=== PATIENT | male | born 1965 | race Caucasian/White ===

== ENCOUNTER → 2017-02-10 | Outpatient (CLI) | payer BC ==
--- NOTE | 2017-02-11 08:51 | PN ---
This is a 51-year-old male patient who is coming in for a compliancy check regarding his obstructive sleep apnea. 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 The patient is very much alert and awake during the day knowing that he has been extremely compliant with CPAP therapy. I have treated this patient with an auto CPAP unit with a pressure minimum of 10 and pressure maximum of 20. On today's compliancy data, I noted that there is some residual obstructive sleep apnea despite his compliance. His AHI is down to 7.4. Despite that, the patient is not having any major hypersomnia or sleepiness during the day. 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 No falling asleep behind the wheel and is fully alert and awake. I noted that he is averaging around 8 hours and 8 minutes on his CPAP unit and his P90 pressure is at 19.3. He has lost weight and he is down 332 pounds, which is approximately 9 pounds less. He is wearing his CPAP every night without any interruption. His treatment has been very much successful. He is still benefiting from the treatment. No other comorbidities for now. No other changes in his medications or health status in general. BP is 132/78, pulse 84, respirations 16, temperature 97.6, saturation 96% on room air. BMI is 43.8. Rumsey score is 1. Weight is 332, height is 73 inches. GENERAL APPEARANCE: Calm, comfortable. HEENT: Mallampati class IV. There is no goiter or neck masses. LUNGS: Clear to auscultation. HEART: Sounds are regular rate and rhythm. Normal S1, S2. No S3. No S4. No murmurs. ABDOMEN: Soft, nontender. No organomegaly. EXTREMITIES: No edema. No cyanosis or clubbing. IMPRESSION: 1. Obstructive sleep apnea. The patient continues to undergo a successful CPAP therapy. He clinically is fully alert and awake. Nevertheless, his compliance data shows some minimal residual obstructive events with an apnea-hypopnea index of 7.4 while on treatment. He is on auto CPAP unit with a minimum pressure of 10 and a maximum pressure of 20. 2. Obesity with ongoing weight loss. 3. Diabetes. 4. Hypertension. PLAN: The patient is very compliant and he continues to wear his CPAP every night without interruption. He has seen excellent clinical benefit and there is no hypersomnia or sleepiness. 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 I would like; however, to switch his CPAP pressure setting from an auto CPAP unit to a continuous CPAP unit with a pressure of 20 cm of water and this will eliminate the residual obstructive apnea that he is encountering. He is very compliant. Continue with the same treatment. Follow up with [facility] regarding DOT recertification.
== END | disposition home or self-care (01) ==
LOC: SLEEP 14:29
PROVIDERS: ATTEND Internal Medicine Critical Care Medicine
DX: G47.33 Obstructive sleep apnea (adult) (pediatric) (principal); E66.9 Obesity, unspecified; Z68.41 Body mass index [BMI] 40.0-44.9, adult; E11.9 Type 2 diabetes mellitus without complications; I10 Essential (primary) hypertension

== ENCOUNTER → 2018-08-10 | Outpatient (CLI) | payer BC ==
--- NOTE | 2018-08-10 17:58 | SFUN ---
SLEEP CENTER FOLLOW UP NOTE Lukas is 53 coming in for an annual check regarding obstructive sleep apnea. The patient is doing well and has no specific complaints on today's evaluation. 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 He is on a APAP with a minimum pressure of 10, maximum pressure of 20. Based on the compliance data, the patient has been averaging around 7.9 hours of CPAP use per night. Average PAP pressure is 17, leak factor is 4 L per minute, AHI while on treatment is down to 2.4. No complaints otherwise for now. He has been on CPAP therapy for many years. Weight has been stable. BP 156/87, pulse 78, respirations 16, temperature 97.9, saturation 96% on room air. Weight is 328, height is 6 feet 0 inches, and BMI of 44.4. General appearance: Calm, comfortable. Head is atraumatic, normocephalic. Neck is supple. Mallampati class IV. There is no goiter or neck masses. Lungs clear to auscultation. Heart sounds are regular rate and rhythm. Normal S1, S2. No S3, S4. No murmurs. Abdomen is soft, nontender. No organomegaly. EXTREMITIES: No edema. No cyanosis or clubbing. IMPRESSION: 1. Symptomatic obstructive sleep apnea. The patient currently is on APAP and treatment continues to be successful. Compliance data was checked and the patient continues to benefit from the treatment. 2. Obesity. 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 4. Diabetes mellitus. 5. Hypertension. 6. Hypersomnia, improved. PLAN: 1. Continue CPAP at same level of pressure. 2. Treatment is successful, the patient continues to benefit from treatment. 3. See me back in a year's time, earlier if needed. MMODL / IJN: [id number] /
== END | disposition home or self-care (01) ==
LOC: SLEEP 16:07
PROVIDERS: ATTEND Internal Medicine Critical Care Medicine
DX: G47.33 Obstructive sleep apnea (adult) (pediatric) (principal); E66.9 Obesity, unspecified; E11.9 Type 2 diabetes mellitus without complications; I10 Essential (primary) hypertension; Z68.41 Body mass index [BMI] 40.0-44.9, adult; Z99.89 Dependence on other enabling machines and devices

== ENCOUNTER → 2019-08-16 | Outpatient (CLI) | payer BC ==
--- NOTE | 2019-08-16 18:19 | PN ---
PROGRESS NOTE This is a 54-year-old male patient diagnosed having obstructive sleep apnea, coming in for an annual check. The patient is known to have obstructive sleep apnea and the patient has been on APAP mode with a minimum pressure of 5 and a maximum pressure of 20. On today's evaluation, the patient continues to be successful. Average pressure delivered from the CPAP machine is less and is down to 14. This is a reflection of his weight loss, as the patient has lost approximately 25 pounds since his last evaluation. His was diagnosed having breast cancer and this was quite stressful for him, and he has changed his diet pattern. He has lost weight from a baseline of 328 down to 303. Based on the compliance data, the patient has been averaging 7.8 hours of CPAP use per night. His CPAP use for more than 4 hours is 100%. AHI is down to 2.5. Leak is 30 L/minute. He has no complaints. 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 No sleepiness, tiredness or fatigue during the day. No other complaints otherwise for now. REVIEW OF SYSTEMS: Fourteen-point review of systems was done. Positive findings were all mentioned above in the history of present illness. No cardiac disease. No arrhythmias. No angina. No palpitations. No chest pain. No shortness of breath. No swelling in the lower extremities. PHYSICAL EXAMINATION: VITAL SIGNS: BP is 130/70, pulse 82, respirations 16, temperature 97.6, saturation 98% on room air. Height is 6 feet 1 inch, weight 303, BMI 39.8. GENERAL APPEARANCE: Calm, comfortable. HEAD: Atraumatic, normocephalic. NECK: Supple. There is no JVD. No goiter or neck masses. LUNGS: Clear to auscultation. HEART: Heart sounds are regular rate and rhythm. Normal S1, S2. No S3, S4. No murmurs. ABDOMEN: Soft, nontender. No organomegaly. EXTREMITIES: No edema. No cyanosis or clubbing. NEUROLOGIC: Awake and alert. There are no focal neurological deficits. PSYCHIATRIC: Negative for anxiety or depression. SKIN: Negative for any wounds or ulceration. IMPRESSION: 1. Symptomatic obstructive sleep apnea. Currently on APAP, minimum of 10, maximum of 20. The patient is demonstrating excellent clinical response and compliance and he continues to benefit from treatment. He has no new issues for now. 2. Obesity with an interval 25-pound weight loss. 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 4. Diabetes mellitus. 5. Hypertension. 6. Hypersomnia, improved. PLAN: 1. Continue APAP at the same mode. 2. Renew supplies. 3. Encourage further weight loss. 4. Monitor the outcome. The patient will see me back in a year's time in followup. MMODL / IJN: [id number] /
== END | disposition home or self-care (01) ==
LOC: SLEEP 15:44
PROVIDERS: ATTEND Internal Medicine Critical Care Medicine
DX: G47.33 Obstructive sleep apnea (adult) (pediatric) (principal); E66.9 Obesity, unspecified; E11.9 Type 2 diabetes mellitus without complications; I10 Essential (primary) hypertension; R63.4 Abnormal weight loss; Z68.39 Body mass index [BMI] 39.0-39.9, adult

== ENCOUNTER → 2020-08-07 | Outpatient (CLI) | payer BC ==
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
== END | disposition home or self-care (01) ==
LOC: SLEEP 15:45
PROVIDERS: ATTEND Internal Medicine Critical Care Medicine
DX: G47.33 Obstructive sleep apnea (adult) (pediatric) (principal); G47.10 Hypersomnia, unspecified; E66.9 Obesity, unspecified; Z68.39 Body mass index [BMI] 39.0-39.9, adult; E11.9 Type 2 diabetes mellitus without complications; I10 Essential (primary) hypertension

== ENCOUNTER → 2021-09-24 | Outpatient (CLI) | payer BC ==
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
== END ==
LOC: SLEEP 15:40
PROVIDERS: ATTEND Internal Medicine Critical Care Medicine
DX: G47.33 Obstructive sleep apnea (adult) (pediatric) (principal); E66.9 Obesity, unspecified; E11.9 Type 2 diabetes mellitus without complications; I10 Essential (primary) hypertension; Z68.42 Body mass index [BMI] 45.0-49.9, adult

== ENCOUNTER → 2022-09-23 | Outpatient (CLI) | payer BC ==
--- NOTE | 2022-09-23 16:11 | P.PN ---
Progress Note - Text Progress Note Date: 09/23/22 This is a 57-year-old male patient was being seen for an annual checkup regarding obstructive sleep apnea. Since his last visit, the patient was able to get a new CPAP unit which is an APAP unit, Resvent device, and this is adjusted at a minimum pressure of 10 and a maximum pressure of 20. 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 He is fully alert and awake during the day. He does not fall asleep while driving. No heartburn. No chest pain. No shortness of breath. No morning headaches. No daytime hypersomnia or sleepiness. I checked his new CPAP unit. I noted that the patient has been using his machine overnight. The patient has used his machine more than 4 hours 97% of the time. He is average usage between 08/17/2022 and 09/07/2022 has been in the order of 8.2 hours per night. His PT 95th percentile pressure is at 13.9 cm of water. The 95 percentile leak is around 17 L/m and his AHI is down to 1.6. He has no complaints. He continues to use a fullface mask, large size Shantell view. No issues with hypertension. No stroke. No congestion heart fail ure. His machine is functional. His current vitals BP is 123/80 with a pulse of 77 and a respiration of 16 and a temperature of 97.7. Pulse ox is 97% on room air oxygen. Gramercy score is down to 2. The patient appeared well nourished and normally developed. Vital signs as documented. Head exam is unremarkable. No scleral icterus or corneal arcus noted. Neck is without jugular venous distension, thyromegaly, or carotid bruits. Carotid upstrokes are brisk bilaterally. Lungs are clear to auscultation and percussion. Cardiac exam reveals the PMI to be normally sized and situated. Rhythm is regular. First and second heart sounds normal. No murmurs, rubs or gallops. Abdominal exam reveals normal bowel sounds, no masses, no organomegaly and no aortic enlargement. Extremities are nonedematous and both femoral and pedal pulses are normal.Examination of the skin revealed no evidence of significant rashes, suspicious appearing nevi or other concerning lesions.Neurologically, the patient is awake and alert and the patient does not have any focal neurological deficit. Cranial nerves are essentially intact. 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
== END ==
LOC: SLEEP 15:46
PROVIDERS: ATTEND Internal Medicine Critical Care Medicine
DX: Z53.9 Procedure and treatment not carried out, unspecified reason (principal)

== ENCOUNTER → 2023-09-29 | Outpatient (CLI) | payer BC ==
--- NOTE | 2023-09-29 17:06 | P.PN ---
Progress Note - Text Progress Note Date: 09/29/23 On 09/29/2023, seeing the patient for an annual checkup regarding his obstructive sleep apnea. The patient has known history of obstructive sleep apnea and the patient has been treated with APAP therapy over the years. The patient is doing extremely well and he is currently still maintain on a APAP mode with a minimum pressure of 10 and a maximum pressure of 20. He is using a lennox view fullface mask. No specific complaints. No tiredness or sleepiness during the day. 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 His sleep quality is good. Refreshed in the morning and does not take any naps. CPAP compliancy has been excellent and the patient's data on his machine epi cates that the patient utilizes machine more than 4 hours 98% of the time and his AHI is down to 2.4 while on treatment and is averaging about 8.6 hours of CPAP use per night. No complaints whatsoever. No cardiac vascular complications. BP is 127/92, pulse is 96, respirations 16, temperature is 98.0, pulse ox is 95% on room air. The patient has an Dixon score of 1. The patient appeared well nourished and normally developed. Vital signs as documented. Head exam is unremarkable. No scleral icterus or corneal arcus noted. Neck is without jugular venous distension, thyromegaly, or carotid bruits. Carotid upstrokes are brisk bilaterally. Lungs are clear to auscultation and percussion. Cardiac exam reveals the PMI to be normally sized and situated. Rhythm is regular. First and second heart sounds normal. No murmurs, rubs or gallops. Abdominal exam reveals normal bowel sounds, no masses, no organomegaly and no aortic enlargement. Extremities are nonedematous and both femoral and pedal pulses are normal.Examination of the skin revealed no evidence of significant rashes, suspicious appearing nevi or other concerning lesions.Neurologically, the patient is awake and alert and the patient does not have any focal neurological deficit. Cranial nerves are essentially intact. Assessment Symptomatic obstructive sleep apnea, effectively treated with a APAP mode pres sures of 10/20 cm of water. 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 daytime tiredness or sleepiness and his sleep apnea is essentially well treated. Diabetes mellitus type 2 Hypertension Obesity with a stable body weight Plan Continue CPAP therapy the same level of pressure. The patient wanted to try a different mask. I gave him the air fit F 30 I fullface mask to try and a prescription was sent to his DME. Encourage weight loss. Keep same pressure setting. See me back in one year.
== END ==
LOC: 3 N SLEEP 15:10
PROVIDERS: ATTEND Internal Medicine Critical Care Medicine
DX: G47.33 Obstructive sleep apnea (adult) (pediatric) (principal); E11.9 Type 2 diabetes mellitus without complications; I10 Essential (primary) hypertension; E66.9 Obesity, unspecified; Z99.89 Dependence on other enabling machines and devices
CPT/HCPCS: 99212

== ENCOUNTER → 2023-11-05 | Outpatient (CLI) | payer BC | END | disposition home or self-care (01) | LOC: LABWHC1 13:21 | PROVIDERS: ATTEND Family Medicine | DX: I45.4 Nonspecific intraventricular block (principal); R00.0 Tachycardia, unspecified; R94.31 Abnormal electrocardiogram [ECG] [EKG] | CPT/HCPCS: 36415; 93005 ==

== ENCOUNTER 2023-11-06 10:42 | Inpatient (IN) | payer BC ==
--- NOTE | 2023-11-06 10:51 | ED ---
Arrhythmia/Palpitations HPI - General Chief Complaint: Arrhythmia/Palpitations Stated Complaint: Abn EKG Time Seen by Provider: 11/06/23 10:48 Source: patient, RN notes reviewed Mode of arrival: ambulatory Limitations: no limitations - History of Present Illness Initial Comments: This is a 58-year-old male who presents to the emergency department for pal pitations. States that he has been experiencing fluttering in his chest and palpitations over the last several days. His primary care provider previously advised he check his blood pressure more closely at home, and while his blood pressure was doing well, he noticed on the monitor that his pulse was extremely elevated. He has also noted that he has been very short of breath and becoming winded when walking from a building to his car in the parking lot. Not currently taking any blood thinners. Denies any history of cardiac problems or abnormal rhythms. Denies any chest pain associated with this. MD Complaint: rapid heart beat, palpitations - Related Data Home Medications Medication Instructions Recorded Confirmed Atorvastatin [Lipitor] 80 mg PO HS 11/06/23 11/06/23 Glucosamine/Chondr Vazquez A Sod [Osteo 1 tab PO DAILY 11/06/23 11/06/23 Bi-Flex Caplet] Lisinopril-Hctz 20-25 mg 1 tab PO DAILY 11/06/23 11/06/23 [Zestoretic 20-25] Loratadine [Claritin] 10 mg PO DAILY 11/06/23 11/06/23 Semaglutide [Rybelsus] 7 mg PO DAILY 11/06/23 11/06/23 Vitamin C(Unknown Dose) 1 tab PO DAILY 11/06/23 11/06/23 Vitamin D3(Unknown Dose) 1 tab PO DAILY 11/06/23 11/06/23 metFORMIN HCL [Glucophage] 1,000 mg PO BID 11/06/23 11/06/23 Allergies Allergy/AdvReac Type Severity Reaction Status Date / Time cephalexin [From Keflex] AdvReac Nausea & Verified 11/06/23 12:24 Vomiting & Diarrhea Review of Systems ROS Statement: Those systems with pertinent positive or pertinent negative responses have been documented in the HPI. ROS Other: All systems not noted in ROS Statement are negative. Past Medical History Past Medical History: Atrial Fibrillation, Diabetes Mellitus, Hypertension History of Any Multi-Drug Resistant Organisms: None Reported Past Surgical History: Joint Replacement, Orthopedic Surgery Past Psychological History: No Psychological Hx Reported Smoking Status: Never smoker Past Alcohol Use History: None Reported Past Drug Use History: None Reported General Exam Limitations: no limitations General appearance: alert, in no apparent distress Head exam: Present: atraumatic, normocephalic, normal inspection Respiratory exam: Present: normal lung sounds bilaterally. Absent: respiratory distress, wheezes, rales, rhonchi, stridor Cardiovascular Exam: Present: tachycardia, irregular rhythm Neurological exam: Present: alert, oriented X3, CN II-XII intact Psychiatric exam: Present: normal affect, normal mood Skin exam: Present: warm, dry, intact, normal color. Absent: rash Course Vital Signs 11/06/23 11/06/23 11/06/23 10:44 10:46 14:29 Temperature 98.2 F Pulse Rate 133 H 121 H 99 Respiratory 20 16 Rate Blood Pressure 132/104 108/67 O2 Sat by Pulse 97 97 Oximetry 11/06/23 16:55 Temperature Pulse Rate 120 H Respiratory 16 Rate Blood Pressure 118/68 O2 Sat by Pulse Oximetry Medical Decision Making - Medical Decision Making This is a 58-year-old male who presents to the emergency department for palpitations. Was pt. sent in by a medical professional or institution? @ -No Did you speak to anyone other than the patient for history? @ -No Did you review nursing and triage notes? @ -Yes, and I agree, it is accurate with regards to the patient's symptoms. Were old charts reviewed? @ -No Differential Diagnosis? @ -Differential Palpitations: Ventricular arrhythmias, atrial arrhythmias, myocardial infarction, anemia, thyrotoxicosis, electrolyte imbalance, hypokalemia, pulmonary embolism, pulmonary disease, drugs, alcohol, anxiety, stress.... This is not meant to be an all-inclusive list. EKG interpreted by me (3pts min.)? @ -EKG interpreted by me demonstrating the following: Atrial flutter with rapid ventricular response. Ventricular rate 131 beats per minute, QRS duration 104 ms, QTC 222 ms. X-rays interpreted by me (1pt min.)? @ -Chest x-ray obtained, my interpretation identifies no localized consolidations or infiltrates. CT interpreted by me (1pt min.)? @ -Not obtained U/S interpreted by me (1pt. min.)? @ -Not obtained What testing was considered but not performed? (CT, X-rays, U/S, labs)? Why? @ -None What meds were considered but not given? Why? @ -None Did you discuss the management of the patient with other professionals? @ -Yes, Dr. Lamb, who accepts the patient for admission. Did you reconcile home meds? @ -Yes Was smoking cessation discussed for >3mins.? @ -No Was critical care preformed (if so, how long)? @ -Yes, >31 minutes. Were there social determinants of health that impacted care today? How? (Homelessness, low income, unemployed, alcoholism, drug addiction, transportation, low edu. Level, literacy, decrease access to med. care, [facility], rehab)? @ -No Was there de-escalation of care discussed even if they declined? (Discuss DNR or withdrawal of care, Hospice)? @ -No What co-morbidities impacted this encounter? (DM, HTN, Smoking, COPD, CAD, Cancer, CVA, Hep., AIDS, mental health diagnosis, sleep apnea, morbid obesity)? @ -DM, HTN Was patient admitted / discharged? @ -Admitted. Lab work obtained revealing a mild elevation in liver enzymes and a slightly low magnesium of 1.3. D-dimer and troponin negative. Chest x-ray reveals no acute process. Patient was noted to be in A. fib with RVR on arrival. Patient was started on cardizem and heparin drips. Magnesium replaced with 400mg Magnesium Oxide and 2g of Magnesium Sulfate. His heart rate was not well controlled with the Cardizem drip alone, and he was also given 15mg IVP of Cardizem and 5mg IVP of Metoprolol. Patient admitted to medicine for new onset atrial fibrillation. Consult placed for cardiology. Undiagnosed new problem with uncertain prognosis? @ -None Drug Therapy requiring intensive monitoring for toxicity (Heparin, Nitro, Insulin, Cardizem)? @ -Cardizem and Heparin Were any procedures done? @ -None Diagnosis/symptom? @ -New onset a-fib, hypomagnesemia Acute, or Chronic, or Acute on Chronic? @ -Acute Uncomplicated (without systemic symptoms) or Complicated (systemic symptoms)? @ -Complicated Side effects of treatment? @ -None Exacerbation, Progression, or Severe Exacerbation] @ -Not applicable Poses a threat to life or bodily function? @ -Yes This case was discussed in detail with the attending ED physician, Dr. Yost. Presentation, findings, and treatment plan discussed in detail as well. - Lab Data Result diagrams: 11/06/23 12:00 11/06/23 13:11 Lab Results 11/06/23 11/06/23 11/06/23 Range/Units 12:00 12:00 12:00 WBC 8.4 (3.8-10.6) k/uL RBC 4.93 (4.30-5.90) m/uL Hgb 14.7 (13.0-17.5) gm/dL Hct 43.5 (39.0-53.0) % MCV 88.2 (80.0-100.0) fL MCH 29.9 (25.0-35.0) pg MCHC 33.9 (31.0-37.0) g/dL RDW 13.3 (11.5-15.5) % Plt Count 224 (150-450) k/uL MPV 8.8 Neutrophils % 62 % Lymphocytes % 27 % Monocytes % 6 % Eosinophils % 2 % Basophils % 1 % Neutrophils # 5.2 (1.3-7.7) k/uL Lymphocytes # 2.2 (1.0-4.8) k/uL Monocytes # 0.5 (0-1.0) k/uL Eosinophils # 0.2 (0-0.7) k/uL Basophils # 0.1 (0-0.2) k/uL PT 10.2 (10.0-12.5) sec INR 0.9 (<1.2) APTT 24.0 (22.0-30.0) sec D-Dimer 0.28 (<0.60) mg/L FEU Sodium (137-145) mmol/L Potassium (3.5-5.1) mmol/L Chloride (98-107) mmol/L Carbon Dioxide (22-30) mmol/L Anion Gap mmol/L BUN (9-20) mg/dL Creatinine (0.66-1.25) mg/dL Est GFR (CKD-EPI)AfAm (>60 ml/min/1.73 sqM) Est GFR (CKD-EPI)NonAf (>60 ml/min/1.73 sqM) Glucose (74-99) mg/dL Calcium (8.4-10.2) mg/dL Magnesium (1.6-2.3) mg/dL Total Bilirubin (0.2-1.3) mg/dL AST (17-59) U/L ALT (4-49) U/L Alkaline Phosphatase (38-126) U/L Troponin I 0.013 (0.000-0.034) ng/mL Total Protein (6.3-8.2) g/dL Albumin (3.5-5.0) g/dL TSH (0.465-4.680) mIU/L 11/06/23 Range/Units 13:11 WBC (3.8-10.6) k/uL RBC (4.30-5.90) m/uL Hgb (13.0-17.5) gm/dL Hct (39.0-53.0) % MCV (80.0-100.0) fL MCH (25.0-35.0) pg MCHC (31.0-37.0) g/dL RDW (11.5-15.5) % Plt Count (150-450) k/uL MPV Neutrophils % % Lymphocytes % % Monocytes % % Eosinophils % % Basophils % % Neutrophils # (1.3-7.7) k/uL Lymphocytes # (1.0-4.8) k/uL Monocytes # (0-1.0) k/uL Eosinophils # (0-0.7) k/uL Basophils # (0-0.2) k/uL PT (10.0-12.5) sec INR (<1.2) APTT (22.0-30.0) sec D-Dimer (<0.60) mg/L FEU Sodium 137 (137-145) mmol/L Potassium 4.3 (3.5-5.1) mmol/L Chloride 105 (98-107) mmol/L Carbon Dioxide 25 (22-30) mmol/L Anion Gap 7 mmol/L BUN 23 H (9-20) mg/dL Creatinine 0.98 (0.66-1.25) mg/dL Est GFR (CKD-EPI)AfAm >90 (>60 ml/min/1.73 sqM) Est GFR (CKD-EPI)NonAf 84 (>60 ml/min/1.73 sqM) Glucose 119 H (74-99) mg/dL Calcium 9.3 (8.4-10.2) mg/dL Magnesium 1.3 L (1.6-2.3) mg/dL Total Bilirubin 0.4 (0.2-1.3) mg/dL AST 40 (17-59) U/L ALT 55 H (4-49) U/L Alkaline Phosphatase 154 H (38-126) U/L Troponin I (0.000-0.034) ng/mL Total Protein 6.7 (6.3-8.2) g/dL Albumin 4.1 (3.5-5.0) g/dL TSH 1.050 (0.465-4.680) mIU/L - Radiology Data Radiology results: report reviewed, image reviewed Disposition Clinical Impression: New onset atrial fibrillation, Hypomagnesemia Disposition: ADMITTED IP TO THIS [facility] Time of Disposition: 14:47
[2023-11-06] MEDS ORDERED: DILTIAZEM DRIP BOLUS FROM BAG 1 MG SOLN IV ONE ×2 (11:23→13:54)
[2023-11-06] MEDS: DILTIAZEM 125 MG in SODIUM CHLORIDE 0.9% 100 ML IV SCH (11:55)
[2023-11-06 12:10] LABS: Basophils # (A) 0.1 k/uL (0-0.2); Basophils % (A) 1 %; Eosinophils # (A) 0.2 k/uL (0-0.7); Eosinophils % (A) 2 %; HCT 43.5 % (39.0-53.0); HGB 14.7 gm/dL (13.0-17.5); Lymphocytes # (A) 2.2 k/uL (1.0-4.8); Lymphocytes % (A) 27 %; MCH 29.9 pg (25.0-35.0); MCHC 33.9 g/dL (31.0-37.0); MCV 88.2 fL (80.0-100.0); Mean Platelet Volume 8.8; Monocytes # (A) 0.5 k/uL (0-1.0); Monocytes % (A) 6 %; Neutrophils # (A) 5.2 k/uL (1.3-7.7); Neutrophils % (A) 62 %; Platelet Count 224 k/uL (150-450); RBC 4.93 m/uL (4.30-5.90); RDW 13.3 % (11.5-15.5); WBC 8.4 k/uL (3.8-10.6)
[2023-11-06 12:24] LABS: INR 0.9 (<1.2); Prothrombin Time 10.2 sec (10.0-12.5)
--- NOTE | 2023-11-06 12:33 | XR ---
EXAMINATION TYPE: XR chest 2V DATE OF EXAM: 11/06/2023 COMPARISON: NONE HISTORY: Dysrhythmia TECHNIQUE: Frontal and lateral views of the chest are obtained. FINDINGS: There is no focal air space opacity, pleural effusion, or pneumothorax seen. The cardiac silhouette size is within normal limits. The osseous structures are intact. Overlying EKG leads are present. IMPRESSION: No acute cardiopulmonary process.
[2023-11-06 13:26] LABS: ALT 55 U/L (4-49); AST 40 U/L (17-59); African American GFR (CKD) >90 (>60 ml/min/1.73 sqM); Albumin 4.1 g/dL (3.5-5.0); Alkaline Phosphatase 154 U/L (38-126); Anion Gap 7 mmol/L; Blood Urea Nitrogen 23 mg/dL (9-20); Calcium 9.3 mg/dL (8.4-10.2); Carbon Dioxide 25 mmol/L (22-30); Chloride 105 mmol/L (98-107); Glucose 119 mg/dL (74-99); Magnesium 1.3 mg/dL (1.6-2.3); Non-African American GFR(CKD) 84 (>60 ml/min/1.73 sqM); Potassium 4.3 mmol/L (3.5-5.1); Sodium 137 mmol/L (137-145); Total Bilirubin 0.4 mg/dL (0.2-1.3); Total Protein 6.7 g/dL (6.3-8.2)
[2023-11-06] MEDS ORDERED: MAGNESIUM OXIDE 400 MG TAB PO STA (14:38)
[2023-11-06] MEDS ORDERED: HEPARIN SODIUM 1,000 UN/ML (10ML VL) IV ONE (14:39)
[2023-11-06] MEDS ORDERED: HEPARIN SODIUM 1,000 UN/ML (10ML VL) IV PRN (14:39)
[2023-11-06] MEDS ORDERED: METOPROLOL TARTRATE 5 MG/5 ML VIAL IVP STA (14:46)
[2023-11-06] MEDS ORDERED: DILTIAZEM 5 MG/ML 5 ML VIAL IVP STA (14:46)
[2023-11-06] MEDS ORDERED: HYDROcodone/APAP 5-325MG 1 EACH TAB PO PRN (15:06)
[2023-11-06] MEDS ORDERED: NALOXONE 0.4 MG/ML 1 ML VIAL IV PRN (15:06)
[2023-11-06] MEDS ORDERED: MORPHINE SULFATE 4 MG/ML SYRINGE IV PRN (15:06)
[2023-11-06] MEDS ORDERED: ONDANSETRON 4 MG/2 ML VIAL IVP PRN (15:06)
[2023-11-06] MEDS ORDERED: ACETAMINOPHEN TAB 325 MG TAB PO PRN (15:06)
[2023-11-06] MEDS: HEPARIN SOD,PORK IN 0.45% NACL 25,000 UNIT in 0.45% NACL 1 250ML.BAG IV SCH (17:16)
[2023-11-06] MEDS: MAGNESIUM SULFATE-D5W PMX 1 GM in DEXTROSE/WATER 1 100ML.BAG IVPB SCH ×2 (17:25→21:10)
[2023-11-06 20:03] LABS: Glucose,Whole Blood 152 mg/dL (70-110)
[2023-11-06] MEDS: ATORVASTATIN 80 MG TAB PO SCH (21:07)
[2023-11-06] MEDS: metFORMIN 500 MG TAB PO SCH (21:08)
[2023-11-07] MEDS: DILTIAZEM 125 MG in SODIUM CHLORIDE 0.9% 100 ML IV SCH (04:37)
[2023-11-07 06:26] LABS: Glucose,Whole Blood 120 mg/dL (70-110)
[2023-11-07] MEDS: metFORMIN 500 MG TAB PO SCH ×2 (08:04→19:55)
[2023-11-07] MEDS: LORATADINE 10 MG TAB PO SCH (08:04)
[2023-11-07] MEDS: ASCORBIC ACID 500 MG TAB PO SCH (08:04)
[2023-11-07] MEDS: CHOLECALCIFEROL 25 MCG (1000 IU) TABLET PO SCH (08:04)
[2023-11-07] MEDS: NON FORMULARY DRUG (Semaglutide [Rybelsus] 7 MG Tablet) PO SCH (08:07)
[2023-11-07] MEDS ORDERED: NON FORMULARY DRUG (Glucosamine/Chondr Su A Sod [Osteo Bi-Flex Caplet] 1 EACH Tablet) PO SCH (09:00)
[2023-11-07] MEDS ORDERED: LISINOPRIL-HCTZ 20-25 MG 1 EACH TAB PO SCH (09:00)
[2023-11-07 09:28] LABS: Basophils # (A) 0.1 k/uL (0-0.2); Basophils % (A) 1 %; Eosinophils # (A) 0.1 k/uL (0-0.7); Eosinophils % (A) 2 %; HCT 45.7 % (39.0-53.0); HGB 14.7 gm/dL (13.0-17.5); Hypochromasia Moderate; Lymphocytes # (A) 1.8 k/uL (1.0-4.8); Lymphocytes % (A) 31 %; MCH 30.4 pg (25.0-35.0); MCHC 32.1 g/dL (31.0-37.0); Mean Platelet Volume 9.5; Monocytes # (A) 0.3 k/uL (0-1.0); Monocytes % (A) 5 %; Neutrophils # (A) 3.4 k/uL (1.3-7.7); Neutrophils % (A) 59 %; Platelet Count 175 k/uL (150-450); RBC 4.82 m/uL (4.30-5.90); RDW 13.2 % (11.5-15.5); WBC 5.8 k/uL (3.8-10.6)
[2023-11-07 09:32] LABS: MCV 94.9 fL (80.0-100.0)
[2023-11-07 09:50] LABS: ALT 57 U/L (4-49); African American GFR (CKD) >90 (>60 ml/min/1.73 sqM); Albumin 3.9 g/dL (3.5-5.0); Anion Gap 11 mmol/L; Blood Urea Nitrogen 20 mg/dL (9-20); Carbon Dioxide 18 mmol/L (22-30); Chloride 104 mmol/L (98-107); Glucose 200 mg/dL (74-99); Non-African American GFR(CKD) >90 (>60 ml/min/1.73 sqM); Sodium 133 mmol/L (137-145); Total Protein 6.8 g/dL (6.3-8.2)
[2023-11-07 09:57] LABS: AST 56 U/L (17-59); Potassium 5.1 mmol/L (3.5-5.1)
[2023-11-07 09:58] LABS: Alkaline Phosphatase 97 U/L (38-126)
--- NOTE | 2023-11-07 10:13 | P.HPIM ---
History of Present Illness H&P Date: 11/07/23 This is a 58-year-old male patient of Dr. Vega who presented with concerns of elevated heart rate and palpitations. Patient was monitoring blood pressure at home when he noticed on his blood pressure machine that his heart rate was elevated at 130s and has a feeling of his heart pounding. Upon arrival EKG was completed showing atrial flutter with RVR with heart rate of 131. Patient denies history of atrial flutter/fib. Chest x-ray completed showing no acute cardiopulmonary process. Additional medical history includes diabetes mellitus medication controlled, hyperlipidemia, hypertension. Patient denies any recent illness. D-dimer -0.28. TSH level I.050. This time patient will be admitted patient was started on Cardizem and heparin drip. Cardiology services consulted will order 2-D echo and repeat labs. At this time patient denies chest pain or shortness breath. Patient denies nausea vomiting or diarrhea. Patient denies any urinary burning or frequency Review of Systems Please refer to HPI otherwise unremarkable Past Medical History Past Medical History: Diabetes Mellitus, Hyperlipidemia, Hypertension History of Any Multi-Drug Resistant Organisms: None Reported Past Surgical History: Joint Replacement, Orthopedic Surgery Past Psychological History: No Psychological Hx Reported Smoking Status: Former smoker Past Alcohol Use History: None Reported Past Drug Use History: None Reported Medications and Allergies Home Medications Medication Instructions Recorded Confirmed Type Atorvastatin [Lipitor] 80 mg PO HS 11/06/23 11/06/23 History Glucosamine/Chondr Vazquez A Sod [Osteo 1 tab PO DAILY 11/06/23 11/06/23 History Bi-Flex Caplet] Lisinopril-Hctz 20-25 mg 1 tab PO DAILY 11/06/23 11/06/23 History [Zestoretic 20-25] Loratadine [Claritin] 10 mg PO DAILY 11/06/23 11/06/23 History Semaglutide [Rybelsus] 7 mg PO DAILY 11/06/23 11/06/23 History Vitamin C(Unknown Dose) 1 tab PO DAILY 11/06/23 11/06/23 History Vitamin D3(Unknown Dose) 1 tab PO DAILY 11/06/23 11/06/23 History metFORMIN HCL [Glucophage] 1,000 mg PO BID 11/06/23 11/06/23 History Allergies Allergy/AdvReac Type Severity Reaction Status Date / Time cephalexin [From Keflex] AdvReac Nausea & Verified 11/06/23 12:24 Vomiting & Diarrhea Physical Exam Vitals: Vital Signs Temp Pulse Pulse Resp BP BP Pulse Ox 11/07/23 08:00 97.9 F 90 17 119/72 93 L 11/07/23 04:00 97.9 F 95 17 109/75 96 11/07/23 02:00 94 18 11/07/23 00:00 97.7 F 94 18 117/76 96 11/06/23 21:17 97.9 F 93 17 128/78 95 11/06/23 20:00 93 11/06/23 16:55 120 H 16 118/68 11/06/23 14:29 99 16 108/67 97 11/06/23 10:46 121 H 11/06/23 10:44 98.2 F 133 H 20 132/104 97 Intake and Output 11/06/23 11/07/23 11/07/23 22:59 06:59 14:59 Intake Total 585.833 185.802 Balance 585.833 185.802 Intake: Intake, IV Titration 45.833 185.802 Amount Diltiazem 125 mg In 83.5 Sodium Chloride 0.9% 100 ml @ 5 MG/HR 5 mls/hr IV .Q24H VIRA Rx#:[id number] Heparin Sod,Pork in 0.45% 45.833 102.302 NaCl 25,000 unit In 0.45 % NaCl 1 250ml.bag @ 7. 473 UNITS/KG/HR 10 mls/hr IV .Q24H VIRA Rx#: [id number] Oral 540 Other: Voiding Method Toilet Toilet Toilet # Voids 2 Weight 133.81 kg Head normocephalic Neck supple Lungs irregular heart rate Heart regular rate and rhythm S1-S2, no rub or gallop Abdomen is soft nontender nondistended positive bowel sounds no hepatosplenomegaly Extremities no edema Neuro alert and orientated to 3 Results CBC & Chem 7: 11/07/23 09:17 11/07/23 09:17 Labs: Abnormal Lab Results - Last 24 Hours (Table) 11/06/23 11/06/23 11/06/23 Range/Units 13:11 20:01 20:21 APTT 32.8 H (22.0-30.0) sec Sodium (137-145) mmol/L Carbon Dioxide (22-30) mmol/L BUN 23 H (9-20) mg/dL Glucose 119 H (74-99) mg/dL POC Glucose (mg/dL) 152 H (70-110) mg/dL Magnesium 1.3 L (1.6-2.3) mg/dL ALT 55 H (4-49) U/L Alkaline Phosphatase 154 H (38-126) U/L 11/07/23 11/07/23 11/07/23 Range/Units 04:30 06:24 09:17 APTT 66.3 H (22.0-30.0) sec Sodium 133 L (137-145) mmol/L Carbon Dioxide 18 L (22-30) mmol/L BUN (9-20) mg/dL Glucose 200 H (74-99) mg/dL POC Glucose (mg/dL) 120 H (70-110) mg/dL Magnesium (1.6-2.3) mg/dL ALT 57 H (4-49) U/L Alkaline Phosphatase (38-126) U/L Thrombosis Risk Factor Assmnt - Choose All That Apply Any of the Below Risk Factors Present?: Yes Each Factor Represents 1 point: Age 41-60 years Other Risk Factors: No Other congenital or acquired thrombophilia - If yes, enter type in comment: No Thrombosis Risk Factor Assessment Total Risk Factor Score: 1 Thrombosis Risk Factor Assessment Level: Low Risk Assessment and Plan Assessment: 1. New onset atrial flutter/fib with RVR 2. History of diabetes mellitus type 2. 3. Hypomagnesemia. Patient received supplement in ER will order repeat level 4. History of hyperlipidemia 5. History of essential hypertension At this time patient will be admitted Cardiology service is consulted Patient started on heparin and Cardizem drip Repeat labs ordered 2-D echo ordered Time with Patient: Greater than 30 (Greater than 60% of the total time spent in counseling and coordination of care)
[2023-11-07] MEDS: HEPARIN SOD,PORK IN 0.45% NACL 25,000 UNIT in 0.45% NACL 1 250ML.BAG IV SCH (11:04)
[2023-11-07 11:33] LABS: Glucose,Whole Blood 136 mg/dL (70-110)
[2023-11-07] MEDS ORDERED: DILTIAZEM CD 120 MG CAP.ER.24H PO SCH (13:45)
[2023-11-07] MEDS: RIVAROXABAN 20 MG TAB PO SCH (13:49)
--- NOTE | 2023-11-07 17:47 | CA ---
Transthoracic Echo Report Name: Lukas Carballo Age: 58 Gender: M : 1965 Exam Date: 11/07/2023 13:05 Exam Location: [facility] Ht (in): 72 Wt (lb): 295 Ordering Physician: Reinier Lamb MD Attending/Referring Phys: Insurance Representative Antonio Mcgowan RD Procedure CPT: Indications: New onset afib Cardiac Hx: Technical Quality: Technically difficult study Contrast 1: Definity Total Dose (mL): 2 Contrast 2: Total Dose (mL): MEASUREMENTS (Male / Female) Normal Values 2D ECHO LV Diastolic Diameter PLAX 5.7 cm 4.2 - 5.9 / 3.9 - 5.3 cm LV Systolic Diameter PLAX 4.6 cm IVS Diastolic Thickness 1.2 cm 0.6 - 1.0 / 0.6 - 0.9 cm LVPW Diastolic Thickness 1.2 cm 0.6 - 1.0 / 0.6 - 0.9 cm LV Relative Wall Thickness 0.4 RV Internal Dim ED PLAX 3.9 cm LVOT Diameter 2.4 cm Aortic Root Diameter 3.1 cm LA Systolic Diameter LX 3.0 cm 3.0 - 4.0 / 2.7 - 3.8 cm LV Diastolic Volume MOD BP 100.1 cm??? 67 - 155 / 56 - 104 cm??? LV Systolic Volume MOD BP 59.2 cm??? - 58 / 19 - 49 cm??? LV Ejection Fraction MOD BP 40.8 % >= 55 % LV Cardiac Index MOD BP 1474.6 cm???/min???m??? LV Diastolic Volume MOD 4C 108.3 cm??? LV Systolic Volume MOD 4C 66.7 cm??? LV Ejection Fraction MOD 4C 38.4 % LV Cardiac Index MOD 4C 1498.1 cm???/min???m??? LV Diastolic Length 4C 8.4 cm LV Systolic Length 4C 7.5 cm LV Diastolic Volume MOD 2C 88.3 cm??? LV Systolic Volume MOD 2C 43.2 cm??? LV Ejection Fraction MOD 2C 51.1 % LV Cardiac Index MOD 2C 1627.6 cm???/min???m??? LV Diastolic Length 2C 8.8 cm LV Systolic Length 2C 7.3 cm LA Volume 40.3 cm??? 18 - 58 / 22 - 52 cm??? LA Volume Index 15.1 cm???/m??? 16 - 28 cm???/m??? Ascending Aorta Diameter 2.9 cm DOPPLER AV Peak Velocity 124.2 cm/s AV Peak Gradient 6.2 mmHg LVOT Peak Velocity 64.4 cm/s LVOT Peak Gradient 1.7 mmHg LVOT Velocity Time Integral 11.1 cm LVOT Stroke Volume 50.0 cm??? LVOT Stroke Volume Index 19.9 ml/m??? LVOT Cardiac Index 1801.6 cm???/min???m??? AV Area Cont Eq pk 2.3 cm??? MV Peak Velocity 95.8 cm/s MV Peak Gradient 3.7 mmHg MV Mean Velocity 51.2 cm/s MV Mean Gradient 1.3 mmHg MV Velocity Time Integral 25.0 cm Mitral E Point Velocity 95.6 cm/s Mitral A Point Velocity 68.7 cm/s Mitral E to A Ratio 1.4 MV Deceleration Time 233.5 ms MV E' Velocity 5.3 cm/s Mitral E to MV E' Ratio 18.0 TR Peak Velocity 273.8 cm/s TR Peak Gradient 30.0 mmHg Right Ventricular Systolic Press 35.0 mmHg PV Peak Velocity 117.2 cm/s PV Peak Gradient 5.5 mmHg FINDINGS Left Ventricle Normal LV size. Mild concentric LVH. Left ventricular ejection fraction is estimated at 30-35 %. Globally reduced LV systolic function Right Ventricle Mild right ventricular dilatation. Right Atrium Normal RA size Left Atrium Mild LA dilatation Mitral Valve Structurally normal mitral valve. No mitral stenosis. No mitral regurgitation. Aortic Valve Trileaflet aortic valve. No aortic regurgitation. No aortic stenosis. Tricuspid Valve Structurally normal tricuspid valve. Mild TR. Pulmonic Valve Pulmonic valve not well visualized. No pulmonic regurgitation. Pericardium Not well visualized. Aorta Normal size aortic root and proximal ascending aorta. CONCLUSIONS Technically difficult study. Normal LV size. Mild concentric LVH. Severely reduced global LV systolic function due to atrial flutter. EF 30-35% Grade 2 diastolic dysfunction Mild LA dilatation. No pericardial effusion Previewed by: Dr Hamzah Goldberg (Electronically Signed) Final Date: 07 November 2023 17:46
[2023-11-07] MEDS ORDERED: FUROSEMIDE 10 MG/ML 4 ML VIAL IV STA (17:49)
--- NOTE | 2023-11-07 17:49 | P.CRDCN ---
History of Present Illness Consult date: 11/07/23 History of present illness: HISTORY OF PRESENTING ILLNESS 58-year-old male presented to the hospital because of symptoms of palpitations, chest pressure like sensation along with some lightheadedness. Admission ECG showed atrial flutter with heart rate 131 beats a minute. Labs showed hemoglobin 14.7, platelets 175, sodium 133, potassium 5.1, bicarb 18, BUN 20, creatinine 0.8 Troponin was negative, TSH was 1.05, d-dimer was negative Patient reports that he has never had any atrial fibrillation in the past. He does have history of hypertension, obesity, obstructive sleep apnea, dyslipidemia and diabetes REVIEW OF SYSTEMS 14 point review of system is negative except what is mentioned above in HPI. PHYSICAL EXAMINATION Vital signs reviewed. Head: Normocephalic. Eyes: Sclerae nonicteric. Neck: Brisk carotid upstroke, no jugular venous distention. Lungs: Clear to auscultation. Heart: Irregularly irregular, S1-S2, no S3, no murmur or rub. Abdomen: Soft nontender, positive bowel sounds no organomegaly. Extremities: No edema, intact distal pulses. 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 Mild LA dilatation, Grade II diastolic dysfunction PLAN Discontinue Cardizem drip and IV heparin drip Start metoprolol 25 mg twice a day Give Lasix 40 mg IV daily If not spottiness to cardioverted in next 24 hours, will need PATRIA cardioversion on Thursday Consider adding Farxiga at the time of discharge Reduce lisinopril hydrochlorothiazide 07/30. Past Medical History Past Medical History: Diabetes Mellitus, Hyperlipidemia, Hypertension History of Any Multi-Drug Resistant Organisms: None Reported Past Surgical History: Joint Replacement, Orthopedic Surgery Past Psychological History: No Psychological Hx Reported Smoking Status: Former smoker Past Alcohol Use History: None Reported Past Drug Use History: None Reported Medications and Allergies Home Medications Medication Instructions Recorded Confirmed Type Atorvastatin [Lipitor] 80 mg PO HS 11/06/23 11/06/23 History Glucosamine/Chondr Vazquez A Sod [Osteo 1 tab PO DAILY 11/06/23 11/06/23 History Bi-Flex Caplet] Lisinopril-Hctz 20-25 mg 1 tab PO DAILY 11/06/23 11/06/23 History [Zestoretic 20-25] Loratadine [Claritin] 10 mg PO DAILY 11/06/23 11/06/23 History Semaglutide [Rybelsus] 7 mg PO DAILY 11/06/23 11/06/23 History Vitamin C(Unknown Dose) 1 tab PO DAILY 11/06/23 11/06/23 History Vitamin D3(Unknown Dose) 1 tab PO DAILY 11/06/23 11/06/23 History metFORMIN HCL [Glucophage] 1,000 mg PO BID 11/06/23 11/06/23 History Allergies Allergy/AdvReac Type Severity Reaction Status Date / Time cephalexin [From Keflex] AdvReac Nausea & Verified 11/06/23 12:24 Vomiting & Diarrhea Physical Exam Vitals: Vital Signs Temp Pulse Resp BP Pulse Ox 11/07/23 12:00 94 16 104/66 95 11/07/23 08:00 97.9 F 90 17 119/72 93 L 11/07/23 04:00 97.9 F 95 17 109/75 96 11/07/23 02:00 94 18 11/07/23 00:00 97.7 F 94 18 117/76 96 11/06/23 21:17 97.9 F 93 17 128/78 95 11/06/23 20:00 93 Intake and Output 11/07/23 11/07/23 11/07/23 06:59 14:59 22:59 Intake Total 185.802 781.168 Balance 185.802 781.168 Intake: Intake, IV Titration 185.802 181.168 Amount Diltiazem 125 mg In 83.5 46.167 Sodium Chloride 0.9% 100 ml @ 5 MG/HR 5 mls/hr IV .Q24H [facility] Rx#:[id number] Heparin Sod,Pork in 0.45% 102.302 135.001 NaCl 25,000 unit In 0.45 % NaCl 1 250ml.bag @ 7. 473 UNITS/KG/HR 10 mls/hr IV .Q24H [facility] Rx#: [id number] Oral 600 Other: Voiding Method Toilet Toilet # Voids 2 2 Results 11/07/23 09:17 11/07/23 09:17 Cardiac Enzymes 11/07/23 Range/Units 09:17 AST 56 (17-59) U/L Coagulation 11/06/23 11/07/23 Range/Units 20:21 04:30 APTT 32.8 H 66.3 H (22.0-30.0) sec CBC 11/07/23 Range/Units 09:17 WBC 5.8 (3.8-10.6) k/uL RBC 4.82 (4.30-5.90) m/uL Hgb 14.7 (13.0-17.5) gm/dL Hct 45.7 (39.0-53.0) % Plt Count 175 (150-450) k/uL Comprehensive Metabolic Panel 11/07/23 Range/Units 09:17 Sodium 133 L (137-145) mmol/L Potassium 5.1 (3.5-5.1) mmol/L Chloride 104 (98-107) mmol/L Carbon Dioxide 18 L (22-30) mmol/L BUN 20 (9-20) mg/dL Creatinine 0.86 (0.66-1.25) mg/dL Glucose 200 H (74-99) mg/dL Calcium 9.0 (8.4-10.2) mg/dL AST 56 (17-59) U/L ALT 57 H (4-49) U/L Alkaline Phosphatase 97 (38-126) U/L Total Protein 6.8 (6.3-8.2) g/dL Albumin 3.9 (3.5-5.0) g/dL Current Medications Generic Name Dose Route Start Last Admin Trade Name Freq PRN Reason Stop Dose Admin Acetaminophen 650 mg 11/06/23 15:06 Acetaminophen Tab 325 Mg Tab PO Q6HR PRN Mild Pain or Fever > 100.5 Hydrocodone Bitart/Acetaminophen 1 each 11/06/23 15:06 Hydrocodone/Apap 5-325mg 1 Each Tab PO Q4HR PRN Moderate Pain (Scale 4 to 6) Ascorbic Acid 500 mg 11/07/23 09:00 11/07/23 08:04 Ascorbic Acid 500 Mg Tab PO 500 mg DAILY [facility] Administration Atorvastatin Calcium 80 mg 11/06/23 21:00 11/06/23 21:07 Atorvastatin 80 Mg Tab PO 80 mg HS [facility] Administration Cholecalciferol 25 mcg 11/07/23 09:00 11/07/23 08:04 Cholecalciferol 25 Mcg (1000 Iu) Tablet PO 25 mcg DAILY [facility] Administration Lisinopril/HCTZ 1 each 11/08/23 09:00 Lisinopril-Hctz 10-12.5 Mg 1 Each Tab PO DAILY [facility] Loratadine 10 mg 11/07/23 09:00 11/07/23 08:04 Loratadine 10 Mg Tab PO 10 mg DAILY [facility] Administration Metformin HCl 1,000 mg 11/06/23 21:00 11/07/23 08:04 Metformin 500 Mg Tab PO 1,000 mg BID [facility] Administration Metoprolol Tartrate 25 mg 11/08/23 08:00 Metoprolol Tartrate 25 Mg Tab PO BID [facility] Morphine Sulfate 4 mg 11/06/23 15:06 Morphine Sulfate 4 Mg/Ml Syringe IV Q4HR PRN Severe Pain (Scale 7 to 10) Naloxone HCl 0.2 mg 11/06/23 15:06 Naloxone 0.4 Mg/Ml 1 Ml Vial IV Q2M PRN Opioid Reversal Non-Formulary Medication 7 mg 11/07/23 09:00 11/07/23 08:07 Semaglutide [Rybelsus] PO Not Given DAILY [facility] Ondansetron HCl 4 mg 11/06/23 15:06 Ondansetron 4 Mg/2 Ml Vial IVP Q8HR PRN Nausea And Vomiting Rivaroxaban 20 mg 11/07/23 13:43 11/07/23 13:49 Rivaroxaban 20 Mg Tab PO 20 mg W/SUPPER [facility] Administration Protocol Intake and Output 11/07/23 11/07/23 11/07/23 06:59 14:59 22:59 Intake Total 185.802 781.168 Balance 185.802 781.168 Intake: Intake, IV Titration 185.802 181.168 Amount Diltiazem 125 mg In 83.5 46.167 Sodium Chloride 0.9% 100 ml @ 5 MG/HR 5 mls/hr IV .Q24H [facility] Rx#:[id number] Heparin Sod,Pork in 0.45% 102.302 135.001 NaCl 25,000 unit In 0.45 % NaCl 1 250ml.bag @ 7. 473 UNITS/KG/HR 10 mls/hr IV .Q24H [facility] Rx#: [id number] Oral 600 Other: Voiding Method Toilet Toilet # Voids 2 2 11/07/23 09:17 11/07/23 09:17
[2023-11-07] MEDS: ATORVASTATIN 80 MG TAB PO SCH (19:54)
[2023-11-07 20:08] LABS: Glucose,Whole Blood 158 mg/dL (70-110)
[2023-11-08 05:05] LABS: Basophils # (A) 0.1 k/uL (0-0.2); Basophils % (A) 1 %; Eosinophils # (A) 0.2 k/uL (0-0.7); Eosinophils % (A) 2 %; HCT 45.1 % (39.0-53.0); HGB 15.2 gm/dL (13.0-17.5); Lymphocytes # (A) 2.3 k/uL (1.0-4.8); Lymphocytes % (A) 29 %; MCHC 33.7 g/dL (31.0-37.0); Mean Platelet Volume 9.2; Monocytes # (A) 0.8 k/uL (0-1.0); Monocytes % (A) 9 %; Neutrophils # (A) 4.6 k/uL (1.3-7.7); Neutrophils % (A) 56 %; Platelet Count 235 k/uL (150-450); RBC 5.06 m/uL (4.30-5.90); RDW 13.3 % (11.5-15.5); WBC 8.1 k/uL (3.8-10.6)
[2023-11-08 05:20] LABS: ALT 58 U/L (4-49); AST 42 U/L (17-59); African American GFR (CKD) 81 (>60 ml/min/1.73 sqM); Albumin 4.2 g/dL (3.5-5.0); Alkaline Phosphatase 102 U/L (38-126); Anion Gap 10 mmol/L; Blood Urea Nitrogen 26 mg/dL (9-20); Calcium 9.7 mg/dL (8.4-10.2); Carbon Dioxide 25 mmol/L (22-30); Chloride 100 mmol/L (98-107); Glucose 143 mg/dL (74-99); Magnesium 1.7 mg/dL (1.6-2.3); Non-African American GFR(CKD) 70 (>60 ml/min/1.73 sqM); Potassium 4.9 mmol/L (3.5-5.1); Sodium 135 mmol/L (137-145); Total Bilirubin 0.6 mg/dL (0.2-1.3); Total Protein 6.7 g/dL (6.3-8.2)
[2023-11-08 06:15] LABS: Glucose,Whole Blood 148 mg/dL (70-110)
[2023-11-08] MEDS: LISINOPRIL-HCTZ 10-12.5 MG 1 EACH TAB PO SCH (08:50)
[2023-11-08] MEDS: CHOLECALCIFEROL 25 MCG (1000 IU) TABLET PO SCH (08:51)
[2023-11-08] MEDS: METOPROLOL TARTRATE 25 MG TAB PO SCH ×2 (08:51→20:10)
[2023-11-08] MEDS: ASCORBIC ACID 500 MG TAB PO SCH (08:51)
[2023-11-08] MEDS: LORATADINE 10 MG TAB PO SCH (08:51)
[2023-11-08] MEDS: metFORMIN 500 MG TAB PO SCH ×2 (08:51→20:10)
[2023-11-08] MEDS: NON FORMULARY DRUG (Semaglutide [Rybelsus] 7 MG Tablet) PO SCH (08:54)
--- NOTE | 2023-11-08 11:32 | P.PN ---
Subjective Progress Note Date: 11/08/23 This is a 58-year-old male patient of Dr. Vega who presented with concerns of elevated heart rate and palpitations. Patient was monitoring blood pressure at home when he noticed on his blood pressure machine that his heart rate was elevated at 130s and has a feeling of his heart pounding. Upon arrival EKG was completed showing atrial flutter with RVR with heart rate of 131. Patient denies history of atrial flutter/fib. Chest x-ray completed showing no acute cardiopulmonary process. Additional medical history includes diabetes mellitus medication controlled, hyperlipidemia, hypertension. Patient denies any recent illness. D-dimer -0.28. TSH level I.050. This time patient will be admitted patient was started on Cardizem and heparin drip. Cardiology services consulted will order 2-D echo and repeat labs. At this time patient denies chest pain or shortness breath. Patient denies nausea vomiting or diarrhea. Patient denies any urinary burning or frequency On 11/08/2023 patient was seen and examined on the telemetry floor, he is alert and oriented 3 in no apparent distress, currently he is still in atrial fibrillation with a heart rate of 94, he was seen by cardiology yesterday, IV heparin was discontinued and patient was started on oral Xarelto, IV Cardizem was discontinued and patient was started on oral metoprolol, echocardiogram revealed evidence of cardiomyopathy with decreased ejection fraction to 30-35% possible plans for cardioversion in the next 1-2 days, will continue to monitor closely Objective - Vital Signs Vital signs: Vital Signs Temp 98 F 11/08/23 08:50 Pulse 90 11/08/23 08:50 Resp 17 11/08/23 08:50 BP 137/65 11/08/23 08:50 Pulse Ox 94 L 11/08/23 08:50 FiO2 Intake & Output 11/07/23 11/08/23 11/08/23 18:59 06:59 18:59 Intake Total 1021.168 240 240 Output Total 1020 Balance 1021.168 -780 240 Weight 129.6 kg Intake: Intake, IV Titration 181.168 Amount Diltiazem 125 mg In 46.167 Sodium Chloride 0.9% 100 ml @ 5 MG/HR 5 mls/hr IV .Q24H [facility] Rx#:[id number] Heparin Sod,Pork in 0.45% 135.001 NaCl 25,000 unit In 0.45 % NaCl 1 250ml.bag @ 7. 473 UNITS/KG/HR 10 mls/hr IV .Q24H [facility] Rx#: [id number] Oral 840 240 240 Output: Urine 1020 Other: Voiding Method Toilet Toilet # Voids 2 3 - Exam In general patient is alert and oriented x3 in no distress HEENT head normocephalic and atraumatic Neck is supple no JVD no goiter no lymphadenopathy no carotid bruit Chest examination is clear to auscultation no crackles no wheezing Cardiac exam reveals irregular heart sounds S1 and S2 no gallops no murmurs Abdomen is soft nontender no organomegaly with normal bowel sounds Extremity exam reveals no edema no cyanosis or clubbing Neurological examination reveals no gross focal deficits - Labs CBC & Chem 7: 11/08/23 04:20 11/08/23 04:20 Labs: Abnormal Lab Results - Last 24 Hours (Table) 11/07/23 11/07/23 11/07/23 Range/Units 09:17 11:32 20:06 Sodium 133 L (137-145) mmol/L Carbon Dioxide 18 L (22-30) mmol/L BUN (9-20) mg/dL Glucose 200 H (74-99) mg/dL POC Glucose (mg/dL) 136 H 158 H (70-110) mg/dL ALT 57 H (4-49) U/L 11/08/23 11/08/23 Range/Units 04:20 06:14 Sodium 135 L (137-145) mmol/L Carbon Dioxide (22-30) mmol/L BUN 26 H (9-20) mg/dL Glucose 143 H (74-99) mg/dL POC Glucose (mg/dL) 148 H (70-110) mg/dL ALT 58 H (4-49) U/L Assessment and Plan Assessment: 1. New onset atrial flutter/fib with RVR 2. History of diabetes mellitus type 2. 3. Hypomagnesemia. Patient received supplement in ER will order repeat level 4. History of hyperlipidemia 5. History of essential hypertension 6. Cardiomyopathy with decreased ejection fraction to 30-35% At this time patient will be admitted Cardiology service is consulted Patient started on heparin and Cardizem drip Repeat labs ordered 2-D echo ordered
[2023-11-08 11:46] LABS: Glucose,Whole Blood 120 mg/dL (70-110)
[2023-11-08] MEDS ORDERED: FUROSEMIDE 10 MG/ML 2 ML VIAL IV ONE (14:03)
--- NOTE | 2023-11-08 14:07 | P.PN ---
Subjective Progress Note Date: 11/08/23 HISTORY OF PRESENTING ILLNESS 58-year-old male presented to the hospital because of symptoms of palpitations, chest pressure like sensation along with some lightheadedness. Admission ECG showed atrial flutter with heart rate 131 beats a minute. Labs showed hemoglobin 14.7, platelets 175, sodium 133, potassium 5.1, bicarb 18, BUN 20, creatinine 0.8 Troponin was negative, TSH was 1.05, d-dimer was negative Patient reports that he has never had any atrial fibrillation in the past. He does have history of hypertension, obesity, obstructive sleep apnea, dyslipidemia and diabetes REVIEW OF SYSTEMS 14 point review of system is negative except what is mentioned above in HPI. PHYSICAL EXAMINATION Vital signs reviewed. Head: Normocephalic. Eyes: Sclerae nonicteric. Neck: Brisk carotid upstroke, no jugular venous distention. Lungs: Clear to auscultation. Heart: Irregularly irregular, S1-S2, no S3, no murmur or rub. Abdomen: Soft nontender, positive bowel sounds no organomegaly. Extremities: No edema, intact distal pulses. Neuro: Alert, oritented, no focal deficits ASSESSMENT New-onset atrial flutter. Unable to pinpoint the reason why patient may need to atrial flutter. No concerns of infection, anemia. Could be mild dehydration and stress. This is controlled, other history of obesity and age. no reported smoking or heavy alcohol use Mild congestive heart failure Tachycardia-induced cardiomyopathy EF 30-35% EZ on CPAP Obesity Echo showed EF 30-35%, EF assessment was reduced due to atrial flutter with RVR. Mild LA dilatation, Grade II diastolic dysfunction PLAN Start metoprolol 25 mg twice a day Give Lasix 20 mg IV PATRIA CV tomorrow as HR is still 120's. Consider adding Farxiga at the time of discharge Reduce lisinopril hydrochlorothiazide 12.5 Objective - Vital Signs Vital signs: Vital Signs Temp 97.3 F L 11/08/23 12:00 Pulse 100 11/08/23 12:00 Resp 17 11/08/23 12:00 BP 106/74 11/08/23 12:00 Pulse Ox 96 11/08/23 12:00 FiO2 Intake & Output 11/07/23 11/08/23 11/08/23 18:59 06:59 18:59 Intake Total 1021.168 240 480 Output Total 1020 Balance 1021.168 -780 480 Weight 129.6 kg Intake: Intake, IV Titration 181.168 Amount Diltiazem 125 mg In 46.167 Sodium Chloride 0.9% 100 ml @ 5 MG/HR 5 mls/hr IV .Q24H [facility] Rx#:[id number] Heparin Sod,Pork in 0.45% 135.001 NaCl 25,000 unit In 0.45 % NaCl 1 250ml.bag @ 7. 473 UNITS/KG/HR 10 mls/hr IV .Q24H [facility] Rx#: [id number] Oral 840 240 480 Output: Urine 1020 Other: Voiding Method Toilet Toilet Toilet # Voids 2 3 - Labs CBC & Chem 7: 11/08/23 04:20 11/08/23 04:20 Labs: Abnormal Lab Results - Last 24 Hours (Table) 11/07/23 11/08/23 11/08/23 Range/Units 20:06 04:20 06:14 Sodium 135 L (137-145) mmol/L BUN 26 H (9-20) mg/dL Glucose 143 H (74-99) mg/dL POC Glucose (mg/dL) 158 H 148 H (70-110) mg/dL ALT 58 H (4-49) U/L 11/08/23 Range/Units 11:44 Sodium (137-145) mmol/L BUN (9-20) mg/dL Glucose (74-99) mg/dL POC Glucose (mg/dL) 120 H (70-110) mg/dL ALT (4-49) U/L
[2023-11-08] MEDS ORDERED: CALCIUM CARBONATE 500 MG CHEWABLE PO PRN (15:37)
[2023-11-08] MEDS: RIVAROXABAN 20 MG TAB PO SCH (15:47)
[2023-11-08 16:28] LABS: Glucose,Whole Blood 156 mg/dL (70-110)
[2023-11-08 20:06] LABS: Glucose,Whole Blood 163 mg/dL (70-110)
[2023-11-08] MEDS: ATORVASTATIN 80 MG TAB PO SCH (20:10)
[2023-11-09 05:48] LABS: Glucose,Whole Blood 135 mg/dL (70-110)
[2023-11-09 08:29] LABS: Basophils % (A) 0 %; Eosinophils # (A) 0.2 k/uL (0-0.7); Eosinophils % (A) 2 %; HCT 47.1 % (39.0-53.0); HGB 15.7 gm/dL (13.0-17.5); Lymphocytes # (A) 2.4 k/uL (1.0-4.8); Lymphocytes % (A) 30 %; MCH 29.7 pg (25.0-35.0); MCHC 33.4 g/dL (31.0-37.0); MCV 88.9 fL (80.0-100.0); Mean Platelet Volume 9.3; Monocytes # (A) 0.6 k/uL (0-1.0); Monocytes % (A) 7 %; Neutrophils # (A) 4.7 k/uL (1.3-7.7); Neutrophils % (A) 58 %; Platelet Count 257 k/uL (150-450); RBC 5.29 m/uL (4.30-5.90); RDW 13.3 % (11.5-15.5); WBC 8.2 k/uL (3.8-10.6)
[2023-11-09 09:04] LABS: ALT 74 U/L (4-49); AST 52 U/L (17-59); African American GFR (CKD) 85 (>60 ml/min/1.73 sqM); Albumin 4.3 g/dL (3.5-5.0); Alkaline Phosphatase 102 U/L (38-126); Anion Gap 12 mmol/L; Blood Urea Nitrogen 28 mg/dL (9-20); Carbon Dioxide 24 mmol/L (22-30); Chloride 99 mmol/L (98-107); Glucose 141 mg/dL (74-99); Non-African American GFR(CKD) 73 (>60 ml/min/1.73 sqM); Potassium 4.9 mmol/L (3.5-5.1); Sodium 135 mmol/L (137-145); Total Bilirubin 0.8 mg/dL (0.2-1.3)
[2023-11-09] MEDS: metFORMIN 500 MG TAB PO SCH (09:04)
[2023-11-09] MEDS: NON FORMULARY DRUG (Semaglutide [Rybelsus] 7 MG Tablet) PO SCH (09:08)
[2023-11-09] MEDS: LISINOPRIL-HCTZ 10-12.5 MG 1 EACH TAB PO SCH (09:09)
[2023-11-09] MEDS: METOPROLOL TARTRATE 25 MG TAB PO SCH (09:09)
[2023-11-09 11:36] LABS: Glucose,Whole Blood 131 mg/dL (70-110)
--- NOTE | 2023-11-09 12:10 | CDI ---
Documentation Clarification Form Date: 11/09/2023 12:05:01 PM From: Raeann Loomis RN, CCDS Phone: [phone] Admit Date: 11/06/2023 02:47:00 PM Patient Name: Lukas Carballo Visit Number: [id number] Discharge Date: ATTENTION: The Clinical Documentation Specialists (CDI) and [facility] Coding Staff appreciate your assistance in clarifying documentation. Please respond to the clarification below the line at the bottom and electronically sign. The CDI & [facility] Coding staff will review the response and follow-up if needed. Please note: Queries are made part of the Legal Health Record. If you have any questions, please contact the author of this message via ITS. Dr. Hamzah Goldberg Your patient has the documented diagnosis of unspecified mild CHF cardiology consult and subsequent progress notes. Additional information regarding the type, acuity of CHF is requested. History/Risk Factors: Atrial Fibrillation, Diabetes Mellitus, Hypertension Clinical Indicators: 58-year-old male who presents to the emergency department for palpitations. Admission ECG showed atrial flutter with heart rate 131 beats a minute. Labs: Hgb 14.7, Na+, 133, K+ 5.1, BUN 20 CR 0.8 Echo showed EF 30-35%, EF assessment was reduced due to atrial flutter with RVR. Mild LA dilatation, Grade II diastolic dysfunction. 11/06 VS: 132/104 133 20 98.2 97% RA Chest X Ray: No acute cardiopulmonary process. Treatment: Cardiac/Telemetry monitoring Lasix 40 MG IV Once 11/07 Lasix 20 MG IV Once 11/08 Lopressor 25 MG PO BID 11/08 -11/09 Lisinopril/HCTZ 10-12.5 1 each PO Daily In your professional opinion, can you please clarify the acuity and type of CHF if known? [ X ] Acute Systolic Heart Failure (reduced EF) [ ] Chronic Systolic Heart Failure (reduced EF) [ ] Acute on Chronic Systolic Heart Failure (reduced EF) [ ] Acute Diastolic Heart Failure (preserved EF) [ ] Chronic Diastolic Heart Failure (preserved EF) [ ] Acute on Chronic Diastolic Heart Failure (preserved EF) [ ] Acute Systolic & Diastolic Heart Failure [ ] Chronic Systolic & Diastolic Heart Failure [ ] Acute on Chronic Heart Failure Systolic & Diastolic Heart Failure [ ] Other, please specify [ ] Unable to determine (Template Last Revised: November 2020) MTDD
--- NOTE | 2023-11-09 12:42 | CDI ---
Documentation Clarification Form Date: 11/09/2023 12:39:50 PM From: Raeann Loomis RN, CCDS Phone: [phone] Admit Date: 11/06/2023 02:47:00 PM Patient Name: Lukas Carballo Visit Number: [id number] Discharge Date: ATTENTION: The Clinical Documentation Specialists (CDI) and [facility] Coding Staff appreciate your assistance in clarifying documentation. Please respond to the clarification below the line at the bottom and electronically sign. The CDI & [facility] Coding staff will review the response and follow-up if needed. Please note: Queries are made part of the Legal Health Record. If you have any questions, please contact the author of this message via ITS. Dr. Hamzah Goldberg Atrial Flutter is documented in the Cardiology consult and subsequent progress notes. Additional clarification regarding the type of Atrial Flutter is requested. History/Risk factors: Atrial Fibrillation, Diabetes Mellitus, Hypertension Clinical Indicators: 58-year-old male who presents to the emergency department for palpitations. EKG/telemetry: showed atrial flutter with heart rate 131 beats a minute. 11/06 VS: 132/104 133 20 98.2 97% RA Echo showed EF 30-35%, EF assessment was reduced due to atrial flutter with RVR. Mild LA dilatation, Grade II diastolic dysfunction. Treatment: Cardiac/Telemetry monitoring Cardizem drip 11/06-11/07 Heparin drip 11/06-11/07 Lopressor 25 MG PO BID 11/08 -11/09 Lisinopril/HCTZ 10-12.5 1 each PO Daily Xarelto 20 MG PO W/Supper 11/07-11/08 Please clarify the type of Atrial Flutter, if known: [ ] Typical/Type I [ ] Atypical/Type II [ ] Other, please specify [ X ] Unable to determine (Template Last Revised: December 2020) MTDD
[2023-11-09] MEDS ORDERED: LIDOCAINE 1% INJ 10MG/ML (20 ML MDV) ONE (12:53)
[2023-11-09] MEDS ORDERED: PROPOFOL 10 MG/ML 20 ML VIAL IV ONE (12:53)
[2023-11-09] MEDS ORDERED: PHENYLEPHRINE 10 MG/ML VIAL ONE (12:53)
[2023-11-09] MEDS ORDERED: LACTATED RINGERS 1,000 ML IV ONE (13:02)
[2023-11-09] MEDS ORDERED: BENZOCAINE SPRAY 1 CAN TOPICAL ONE ×2 (13:02→13:11)
--- NOTE | 2023-11-09 13:39 | P.TEE ---
Date of Procedure: 11/09/23 Description of Procedure(s): Procedure performed: 1. Transesophageal Echocardiogram. 2. Synchronized Cardioversion. 3. Bubble study Indications: Persistent atrial fibrillation Consent: I have discussed the risks, benefits and alternative therapies for the above-mentioned procedure. The patient has indicated understanding and acceptance of the risks of the procedure. Signed consent was obtained and was placed in the paper chart. Moderate conscious sedation: Moderate conscious sedation was administered by anesthesia, see separate report. Procedural Steps: Timeout was performed in usual fashion. Patient's heart rate, blood pressure, oxygen saturation and ECG were monitored. After achieving appropriate moderate conscious sedation, PATRIA probe was advanced without difficulty and without any immediate complications to the esophagus. PATRIA study was performed with color flow doppler, pulsed wave doppler and continuous wave doppler. Agitated saline bubbles were injected to assess for any intra-atrial shunt. The probe was then removed. After making sure that there is no evidence of intracardiac thrombus, pacer pads were placed on patients chest and back. Synchronized cardioversion was perfromed using 200 J. [1] attempt. Sinus rhythm was confirmed with a 12 lead EKG. Patient tolerated the procedure well. Patient was transferred to the post procedure area in stable and satisfactory condition. Complications: none FINDINGS Left Atrium: Mild left atrial dilatation. No evidence of mass or thrombus seen Left Atrial Appendage: No evidence of thrombus or mass seen in KRISTY Inter atrial septum: Intact inter-atrial septum. No evidence of atrial septal defect or patent foramen ovale on color doppler. No evidence of [id number] intracardiac shunting on bubble study. Left Ventricle: Severely reduced global LV systolic function Right Atrium: Normal overall RV size Right Ventricle: Normal global RV size and systolic function Aortic Valve: Structurally normal Trileaflet, no significant calcification. No significant stenosis or regurgitation on color doppler assessment. Mitral Valve: Struturally normal. No evidence of prolapse. No evidence of stenosis or regurgitation on doppler assessment Pulmonic Valve: Not well visualized. Tricuspid Valve: Structurally normal. Ascending aorta, Aortic root and Aortic arch: Calcium intimal thickening. Ascending aorta Measured 3.7 cm. Normal size aortic root Descending aorta: Mild intimal thickening. CONCLUSION: No evidence of thrombus in left atrium or left atrial appendage. No evidence of [id number] intracardiac shunting on bubble study Severely reduced global LV systolic function, likely tachycardia induced Mild left atrial dilatation dilatation No significant valvular dysfunction Synchronized cardioversion was successful 200 J, 1 attempt. Family was updated. Discharge home on metoprolol 25 mg twice a day, Xarelto 20 mg daily, lisinopril 10, HCTZ 12.5, Inpefa 200mg daily
[2023-11-09 15:08] VITALS: BP 117/63; PULSE 86; RESP 17; TEMP 98.4
--- NOTE | 2023-11-09 15:10 | P.DS ---
Providers Date of admission: 11/06/23 14:47 Expected date of discharge: 11/09/23 Attending physician: Reinier Lamb Consults: 11/06/23 15:06 Consult Physician Urgent Consulting Provider: Hamzah Goldberg Consult Reason/Comments: New onset a-fib Do you want consulting provider notified?: Yes Primary care physician: Grisel Vega Hospital Course: Diagnosis on discharge: 1. New onset atrial flutter/fib with RVR 2. History of diabetes mellitus type 2. 3. Hypomagnesemia. Patient received supplement in ER will order repeat level 4. History of hyperlipidemia 5. History of essential hypertension 6. Cardiomyopathy with decreased ejection fraction to 30-35% Hospital course: This is a 58-year-old male patient of Dr. Vega who presented with concerns of elevated heart rate and palpitations. Patient was monitoring blood pressure at home when he noticed on his blood pressure machine that his heart rate was eleva johann at 130s and has a feeling of his heart pounding. Upon arrival EKG was completed showing atrial flutter with RVR with heart rate of 131. Patient denies history of atrial flutter/fib. Chest x-ray completed showing no acute cardiopulmonary process. Additional medical history includes diabetes mellitus medication controlled, hyperlipidemia, hypertension. Patient denies any recent illness. D-dimer -0.28. TSH level I.050. This time patient will be admitted patient was started on Cardizem and heparin drip. Cardiology services consulted will order 2-D echo and repeat labs. At this time patient denies chest pain or shortness breath. Patient denies nausea vomiting or diarrhea. Patient denies any urinary burning or frequency On 11/08/2023 patient was seen and examined on the telemetry floor, he is alert and oriented 3 in no apparent distress, currently he is still in atrial fibrillation with a heart rate of 94, he was seen by cardiology yesterday, IV heparin was discontinued and patient was started on oral Xarelto, IV Cardizem was discontinued and patient was started on oral metoprolol, echocardiogram revealed evidence of cardiomyopathy with decreased ejection fraction to 30-35% possible plans for cardioversion in the next 1-2 days, will continue to monitor closely On 11/09/2023 patient was seen and examined on the telemetry floor, he is alert and oriented x 3 in no distress, he underwent PATRIA and ablation this morning, he was evaluated by cardiology, and was cleared for discharge. Plan - Discharge Summary Discharge Rx Participant: Yes New Discharge Prescriptions: New Metoprolol Tartrate [Lopressor] 25 mg PO BID 30 Days #60 tab Lisinopril-Hctz 10-12.5 mg [Zestoretic 10-12.5] 1 each PO DAILY 30 Days #30 tab Sotagliflozin [Inpefa] 200 mg PO DAILY 30 Days #30 tab Rivaroxaban [Xarelto] 20 mg PO W/SUPPER 90 Days #90 tab Continue Glucosamine/Chondr Vazquez A Sod [Osteo Bi-Flex Caplet] 1 tab PO DAILY metFORMIN HCL [Glucophage] 1,000 mg PO BID Atorvastatin [Lipitor] 80 mg PO HS #90 tab Vitamin C(Unknown Dose) 1 tab PO DAILY Semaglutide [Rybelsus] 7 mg PO DAILY Discontinued Lisinopril-Hctz 20-25 mg [Zestoretic 20-25] 1 tab PO DAILY No Action Loratadine [Claritin] 10 mg PO DAILY Vitamin D3(Unknown Dose) 1 tab PO DAILY Discharge Medication List Glucosamine/Chondr Vazquez A Sod [Osteo Bi-Flex Caplet] 1 tab PO DAILY 11/06/23 [History] Loratadine [Claritin] 10 mg PO DAILY 11/06/23 [History] Semaglutide [Rybelsus] 7 mg PO DAILY 11/06/23 [History] Vitamin C(Unknown Dose) 1 tab PO DAILY 11/06/23 [History] Vitamin D3(Unknown Dose) 1 tab PO DAILY 11/06/23 [History] metFORMIN HCL [Glucophage] 1,000 mg PO BID 11/06/23 [History] Atorvastatin [Lipitor] 80 mg PO HS #90 tab 11/09/23 [Rx] Lisinopril-Hctz 10-12.5 mg [Zestoretic 10-12.5] 1 each PO DAILY 30 Days #30 tab 11/09/23 [Rx] Metoprolol Tartrate [Lopressor] 25 mg PO BID 30 Days #60 tab 11/09/23 [Rx] Rivaroxaban [Xarelto] 20 mg PO W/SUPPER 90 Days #90 tab 11/09/23 [Rx] Sotagliflozin [Inpefa] 200 mg PO DAILY 30 Days #30 tab 11/09/23 [Rx] Follow up Appointment(s)/Referral(s): Hamzah Goldberg MD [Medical Doctor] - 1 Week Grisel Vega MD [Primary Care Provider] - 1-2 days Activity/Diet/Wound Care/Special Instructions: no work for 48 hours due to receiving anesethia
[2023-11-09] MEDS: LORATADINE 10 MG TAB PO SCH (15:36)
[2023-11-09] MEDS: CHOLECALCIFEROL 25 MCG (1000 IU) TABLET PO SCH (15:36)
[2023-11-09] MEDS: ASCORBIC ACID 500 MG TAB PO SCH (15:36)
== END 2023-11-09 15:47 | disposition home or self-care (01) | DRG 308 ==
LOC: EC 10:42 → 3SCARD 14:47
PROVIDERS: ADMIT Internal Medicine; ATTEND Internal Medicine
PROC: 5A2204Z Restoration of Cardiac Rhythm, Single (ICD-10-PCS; 2023-11-09)
PROC: B24BZZ4 Ultrasonography of Heart with Aorta, Transesophageal (ICD-10-PCS; principal; 2023-11-09 07:30)
DX: I48.19 Other persistent atrial fibrillation (principal); I50.21 Acute systolic (congestive) heart failure; I42.8 Other cardiomyopathies; I11.0 Hypertensive heart disease with heart failure; E66.9 Obesity, unspecified; E11.9 Type 2 diabetes mellitus without complications; I35.8 Other nonrheumatic aortic valve disorders; I48.92 Unspecified atrial flutter; E78.5 Hyperlipidemia, unspecified; G47.33 Obstructive sleep apnea (adult) (pediatric); E83.42 Hypomagnesemia; Z96.60 Presence of unspecified orthopedic joint implant; Z68.36 Body mass index [BMI] 36.0-36.9, adult; Z79.85 Long-term (current) use of injectable non-insulin antidiabetic drugs; Z79.84 Long term (current) use of oral hypoglycemic drugs; Z88.1 Allergy status to other antibiotic agents; Z79.899 Other long term (current) drug therapy; Z87.891 Personal history of nicotine dependence
CPT/HCPCS: 36415; 71046; 80053; 83735; 84443; 84484; 85025; 85379; 85610; 85730; 92960; 93005; 93306; 93312; 93320; 93325; 96365; 96367; 96375; 99291

== ENCOUNTER → 2023-11-18 | Outpatient (CLI) | payer BC ==
[2023-11-19 02:52] LABS: ALT 47 U/L (10-49); AST 29 U/L (14-35); Albumin 4.2 g/dL (3.8-4.9); Albumin/Globulin Ratio 1.83 Ratio (1.60-3.17); Alkaline Phosphatase 118 U/L (41-126); Blood Urea Nitrogen 12.4 mg/dL (9.0-27.0); Calcium 9.6 mg/dL (8.7-10.3); Carbon Dioxide 21.2 mmol/L (21.6-31.8); Chloride 103 mmol/L (96-109); Globulin 2.3 g/dL (1.6-3.3); Glucose 106 mg/dL (70-110); Magnesium 1.4 mg/dL (1.5-2.4); Potassium 4.1 mmol/L (3.5-5.5); Sodium 137 mmol/L (135-145); Total Bilirubin 0.3 mg/dL (0.3-1.2); Total Protein 6.5 g/dL (6.2-8.2)
[2023-11-19 03:47] LABS: HCT 42.6 % (39.6-50.0); HGB 13.9 g/dL (13.0-17.0); MCH 28.5 pg (27.0-32.0); MCHC 32.6 g/dL (32.0-37.0); MCV 87.3 FL (80.0-97.0); Mean Platelet Volume 12.1 FL (9.5-12.2); NRBC Per 100 WBC 0 X 10*3/uL (0.00-0.01); Platelet Count 252 X 10*3/uL (140-440); RBC 4.88 X 10*6/uL (4.40-5.60); RDW 12.7 % (11.5-14.5); WBC 8.28 X 10*3/uL (4.50-10.00)
== END | disposition home or self-care (01) ==
LOC: LABWHC1 14:42
PROVIDERS: ATTEND Student in an Organized Health Care Education/Training Program
DX: N18.9 Chronic kidney disease, unspecified (principal); D63.1 Anemia in chronic kidney disease; E83.42 Hypomagnesemia
CPT/HCPCS: 36415; 80053; 83735; 85027

== ENCOUNTER → 2023-12-11 | Outpatient (CLI) | payer BC ==
[2023-12-11 15:09] LABS: HCT 42.4 % (39.6-50.0); HGB 14.1 g/dL (13.0-17.0); MCH 29.1 pg (27.0-32.0); MCHC 33.3 g/dL (32.0-37.0); MCV 87.4 FL (80.0-97.0); Mean Platelet Volume 11.7 FL (9.5-12.2); NRBC Per 100 WBC 0 X 10*3/uL (0.00-0.01); Platelet Count 252 X 10*3/uL (140-440); RBC 4.85 X 10*6/uL (4.40-5.60); RDW 12.9 % (11.5-14.5); WBC 7.51 X 10*3/uL (4.50-10.00)
[2023-12-11 15:20] LABS: Carbon Dioxide 28.3 mmol/L (21.6-31.8); Chloride 100 mmol/L (96-109); Potassium 4.6 mmol/L (3.5-5.5); Sodium 141 mmol/L (135-145)
== END | disposition home or self-care (01) ==
LOC: LABPAT 07:23
PROVIDERS: ATTEND Internal Medicine Clinical Cardiac Electrophysiology
DX: Z01.812 Encounter for preprocedural laboratory examination (principal); I48.92 Unspecified atrial flutter; I42.9 Cardiomyopathy, unspecified
CPT/HCPCS: 36415; 80051; 82565; 84520; 85027

== ENCOUNTER 2023-12-17 08:02 | Day surgery (SDC) | payer BC ==
[2023-12-17] MEDS: SODIUM CHLORIDE 0.9% 1,000 ML IV ONE (13:01)
[2023-12-17 13:13] LABS: Glucose,Whole Blood 114 mg/dL (70-110)
[2023-12-17 13:48] LABS: ALT 46 U/L (4-49); AST 40 U/L (17-59); African American GFR (CKD) >90 (>60 ml/min/1.73 sqM); Albumin 4.5 g/dL (3.5-5.0); Alkaline Phosphatase 115 U/L (38-126); Anion Gap 6 mmol/L; Blood Urea Nitrogen 20 mg/dL (9-20); Calcium 9.7 mg/dL (8.4-10.2); Carbon Dioxide 31 mmol/L (22-30); Chloride 103 mmol/L (98-107); Glucose 114 mg/dL (74-99); Non-African American GFR(CKD) 86 (>60 ml/min/1.73 sqM); Potassium 4.2 mmol/L (3.5-5.1); Sodium 140 mmol/L (137-145); Total Bilirubin 0.7 mg/dL (0.2-1.3)
[2023-12-17] MEDS ORDERED: MIDAZOLAM 2 MG/2 ML VIAL ONE (15:21)
[2023-12-17] MEDS ORDERED: GLYCOPYRROLATE 0.2 MG/ML 2 ML VIAL ONE (15:21)
[2023-12-17] MEDS ORDERED: LIDOCAINE 1% INJ 10MG/ML (20 ML MDV) ONE ×2 (15:21→15:41)
[2023-12-17] MEDS ORDERED: SUCCINYLCHOLINE CHLORIDE 200 MG/10 ML VIAL IV ONE (15:21)
[2023-12-17] MEDS ORDERED: PROPOFOL 10 MG/ML 20 ML VIAL IV ONE (15:21)
[2023-12-17] MEDS ORDERED: ROCURONIUM 10 MG/ML (5 ML VIAL) IV ONE (15:21)
[2023-12-17] MEDS ORDERED: PHENYLEPHRINE 10 MG/ML VIAL ONE (15:21)
[2023-12-17] MEDS ORDERED: ePHEDrine 50 MG/ML 1 ML VIAL ONE (15:21)
[2023-12-17] MEDS ORDERED: NEOSTIGMINE 1 MG/ML 10 ML VIAL ONE (15:21)
[2023-12-17] MEDS ORDERED: fentaNYL (PF) 50 MCG/ML 2 ML AMP ONE (15:21)
[2023-12-17] MEDS ORDERED: HEPARIN SODIUM 1,000 UN/ML (10ML VL) ONE (15:42)
[2023-12-17] MEDS: LIDOCAINE 1% INJ 10MG/ML (20 ML MDV) SQ ONE (15:49)
[2023-12-17 16:16] LABS: Basophils % (A) 0 %; Eosinophils # (A) 0.2 k/uL (0-0.7); Eosinophils % (A) 3 %; HCT 38.4 % (39.0-53.0); HGB 13.4 gm/dL (13.0-17.5); Lymphocytes # (A) 2.6 k/uL (1.0-4.8); Lymphocytes % (A) 35 %; MCH 30.7 pg (25.0-35.0); MCHC 34.9 g/dL (31.0-37.0); Mean Platelet Volume 8.7; Monocytes # (A) 0.5 k/uL (0-1.0); Monocytes % (A) 7 %; Neutrophils % (A) 53 %; Platelet Count 235 k/uL (150-450); RBC 4.36 m/uL (4.30-5.90); RDW 13.2 % (11.5-15.5); WBC 7.7 k/uL (3.8-10.6)
[2023-12-17] MEDS: HEPARIN SODIUM (1,000 UNIT/ML) 1,000 UNIT in SODIUM CHLORIDE 0.9% 1,000 ML IRRIGATION ONE (16:16)
[2023-12-17] MEDS ORDERED: ACETAMINOPHEN TAB 325 MG TAB PO PRN (18:12)
--- NOTE | 2023-12-17 18:18 | P.EPPROC ---
- EP Procedure Note Electrophysiology Procedure Note: Diagnosis Symptomatic typical atrial flutter Results Successful ablation for typical atrial flutter Bidirectional block across the cavo tricuspid isthmus with differential pacing Intracardiac echo revealed thickened pericardium Plan Continue anticoagulation and management of diabetes and hypertension Details Patient was brought to the EP lab in a fasting state. Written informed consent was obtained prior to the procedure. General anesthesia provided. Venous accesses were obtained via the femoral veins. Diagnostic mapping and ablation cath was replaced. Intracardiac echo catheter was placed Baseline measurements: Sinus cycle length 879 ms, NH interval 101 ms, QRS 116 ms and QT interval 440 ms AH 93 and HV interval 61 ms Sinus node recovery times at 600 and 500 ms and 400ms were AV node Wenckebach block equals 400 No evidence for slow pathway conduction Intracardiac echo confirmed absence of the left atrial appendage thrombus, absence of any pericardial effusion at baseline Cavo tricuspid isthmus was assessed Cavo tricuspid isthmus defined. Tricuspid annulus and eustachian ridge defined Thick isthmus requiring 2 separate RF lines of block to achieve complete block Initially not deflectable sheath was used However this did not provide adequate stability and we switched to a VISIgo sheath Despite that 2 RF lines were made parallel to each other to achieve complete bidirectional block Voltage mapping was performed during the procedure to identify the segment with the slow leak RF ablation was applied at the site with a sudden increment in the isthmus conduction time to 160 ms Catheter mapping performed across the cavo tricuspid isthmus during pacing from the low lateral right atrium and from the coronary sinus os A complete anatomic RF line of block was made This was interrogated with differential pacing and with split potentials across the line during pacing maneuvers Bidirectional block confirmed Long split potentials confirmed Isthmus conduction time 160 ms Catheters were removed. Venous accesses secured and closed with Vascade device Patient transferred to the procedure well without any acute complications
--- NOTE | 2023-12-17 18:33 | P.PRLE ---
RE: Lukas Carballo Dear Alie Gaytan underwent a diagnostic EP study and successful ablation for typical atrial flutter with confirmed bidirectional block He will continue anticoagulation at this time along with his antihypertensive therapy He tolerated the procedure well but we will continue to watch him for development of any atrial fibrillation since intracardiac echo also revealed a thickened pericardium consistent with prior pericarditis but without any effusion. 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
[2023-12-17 19:02] LABS: Glucose,Whole Blood 111 mg/dL (70-110)
[2023-12-17] MEDS: SODIUM CHLORIDE 0.9% 1,000 ML IV SCH (20:58)
[2023-12-17] MEDS: ACETAMINOPHEN IV (For NPO) 1,000 MG in EMPTY BAG 1 BAG IVPB ONE (22:03)
[2023-12-17] MEDS: ATORVASTATIN 80 MG TAB PO SCH (22:04)
[2023-12-17] MEDS: metFORMIN 500 MG TAB PO SCH (22:04)
[2023-12-17] MEDS: RIVAROXABAN 20 MG TAB PO SCH (22:04)
[2023-12-18 08:15] VITALS: BP 121/75; PULSE 75; RESP 18; TEMP 97.9
--- NOTE | 2023-12-18 08:46 | DS ---
DISCHARGE SUMMARY HISTORY OF PRESENT ILLNESS: Lukas is a 58-year-old gentleman with history of atrial flutter, who presented to hospital for flutter ablation. PROCEDURES PERFORMED: Atrial flutter ablation. CONDITION: At the time of discharge, the patient is hemodynamically stable, remains in sinus rhythm, free of symptoms. PHYSICAL EXAMINATION: VITAL SIGNS: Afebrile. Vital signs are stable. CHEST: Reveals good air entry bilaterally. HEART: Reveals first and second heart sounds. No gallop, no murmur. ABDOMEN: Soft. EXTREMITIES: Did not reveal any edema. Peripheral pulses are felt. Foot pulses are intact. : Right groin is free of bleeding, bruit, hematoma. LABS: Showed that the hemoglobin is 13.4, potassium is 4.2, creatinine is 0.9. EKG this morning shows sinus rhythm with PVCs. MEDICATIONS: At the time of discharge include, 1. Zestoretic. 2. Rybelsus. 3. Xarelto. 4. Claritin. 5. Lipitor. FOLLOWUP: The patient will be followed up by Dr. Fitzpatrick in the office. MMODL / IJN: [id number] /
[2023-12-18] MEDS: DAPAGLIFLOZIN PROPANEDIOL 5 MG TABLET PO SCH (09:12)
[2023-12-18] MEDS: LISINOPRIL-HCTZ 10-12.5 MG 1 EACH TAB PO SCH (09:12)
[2023-12-18] MEDS: NON FORMULARY DRUG (Semaglutide [Rybelsus] 7 MG Tablet) PO SCH (09:13)
[2023-12-18] MEDS ORDERED: RIVAROXABAN 20 MG TAB PO SCH (17:30)
== END 2023-12-18 10:20 | disposition home or self-care (01) ==
LOC: CATHEP 08:02 → 6NMEDSUR 17:49 → CATHEP 12-18 10:20
PROVIDERS: ATTEND Internal Medicine Clinical Cardiac Electrophysiology
DX: I48.92 Unspecified atrial flutter (principal); I48.91 Unspecified atrial fibrillation; I10 Essential (primary) hypertension; E78.5 Hyperlipidemia, unspecified; E11.9 Type 2 diabetes mellitus without complications; Z79.01 Long term (current) use of anticoagulants; Z79.899 Other long term (current) drug therapy
CPT/HCPCS: 93662; 93653; 86900; 86901; 80053; 84443; 85025; 86850; C1759; C1894; C1769; C1766; C1760; C1730; C1893; C1732; J2001; J1644